=== PATIENT | female | born 1985 | race Caucasian/White ===

== ENCOUNTER 2019-09-09 22:17 | Emergency (ER) | payer OTHER ==
[~2019-09-09] VITALS: Ht 172.7 cm; Wt 63.5 kg
[2019-09-09 23:09] LABS: BASOPHILS % (AUTO) 0.1 % (0.0-2.0); HEMATOCRIT 45.9 % (31.2-41.9); HEMOGLOBIN 15.1 g/dL (10.9-14.3); LYMPHOCYTES # (AUTO) 0.5 K/uL (20.0-40.0); LYMPHOCYTES % (AUTO) 4.4 % (20.5-51.5); MEAN CORPUSCULAR HEMOGLOBIN 29.9 uug (24.7-32.8); MEAN CORPUSCULAR HGB CONC 33 g/dL (32.3-35.6); MEAN CORPUSCULAR VOLUME 90.9 fL (75.5-95.3); MONOCYTES # (AUTO) 0.3 K/uL (2.0-10.0); MONOCYTES % (AUTO) 2.6 % (0.0-11.0); NEUTROPHILS # (AUTO) 11.1 K/uL (1.8-8.9); NEUTROPHILS % (AUTO) 92.9 % (38.5-71.5); PLATELET COUNT (AUTO) 154 K/uL (179-408); RED BLOOD CELL COUNT(AUTO) 5.05 MIL/uL (3.63-4.92)
[2019-09-09] MEDS ORDERED: IV NS 1000 ML 1,000 ML IV ONE (23:15)
[2019-09-09] MEDS ORDERED: MORPHINE SULFATE 4 MG/1 ML DISP.SYRIN IM ONE (23:15)
[2019-09-09] MEDS ORDERED: MORPHINE SULFATE 2 MG/1 ML DISP.SYRIN IV ONE (23:15)
[2019-09-09 23:23] LABS: BILIRUBIN,DIRECT 0.3 mg/dL (0.0-0.2); BILIRUBIN,TOTAL 0.9 mg/dL (0.2-1.0); TOTAL PROTEIN, SERUM 7.7 g/dL (6.4-8.2)
[2019-09-09] MEDS ORDERED: HYDROMORPHONE 1 MG/1 ML DISP.SYRIN ONE (23:37)
[2019-09-09] MEDS ORDERED: HYDROMORPHONE 1 MG/1 ML DISP.SYRIN IV ONE (23:45)
[2019-09-10 00:33] LABS: *BILIRUBIN,URIN NEGATIVE (NEGATIVE); *CLARITY,URINE CLOUDY (CLEAR); *COLOR,URINE YELLOW (YELLOW); *KETONES,URINE TRACE (NEGATIVE); LEUKOCYTE ESTERASE ,URINE NEGATIVE (NEGATIVE); NITRITE, URINE POSITIVE (NEGATIVE); PH,URINE 6.5 (5.0-8.0); UGLUCOSE NEGATIVE (NEGATIVE)
[2019-09-10 00:38] LABS: *BLOOD, URINE TRACE (NEGATIVE)
[2019-09-10 00:41] LABS: *URINE HCG, QUAL NEGATIVE (NEGATIVE)
[2019-09-10 00:44] LABS: BACTERIA,URINE MANY /HPF (NONE SEEN)
[2019-09-10 00:45] LABS: MUCUS,URINE FEW /LPF (0-FEW); SQUAMOUS EPITHELIAL CELL,UR FEW /HPF (NONE SEEN)
--- NOTE | 2019-09-10 01:11 | NUR ---
O2SAT DROPPING TO 90-91% PT STATES: "HELP I AM HAVING TROUBLE BREATHING" STARTED ON SUPPLEMENTAL O2 VIA NC AT 2LPM PT O2SAT AT 94-95%
--- NOTE | 2019-09-10 01:11 | NUR ---
PT BACK FR CT VIA [facility] BY KERRI VOSS
--- NOTE | 2019-09-10 02:15 | NUR ---
[facility] called, call for bed done pt to admit tele dx pneumonia under barbi cisse
[2019-09-10] MEDS ORDERED: ACETAMINOPHEN 650 MG/20.3 ML LIQUID UDC PO ONE (02:30)
[2019-09-10] MEDS ORDERED: OSELTAMIVIR PHOSPHATE 75 MG CAPSULE PO ONE (02:30)
[2019-09-10] MEDS ORDERED: IV NS 1000 ML 1,000 ML IV ONE (02:30)
[2019-09-10] MEDS ORDERED: VANCOMYCIN 1G/D5W 200 ML PIGGYBACK IV ONE (02:30)
[2019-09-10] MEDS ORDERED: levoFLOXacin 750 MG/D5W 150 ML PIGGYBACK IV ONE (02:30)
[2019-09-10] MEDS ORDERED: levoFLOXacin 750MG/D5W 150 ML IV ONE (02:41)
[2019-09-10] MEDS ORDERED: OSELTAMIVIR PHOSPHATE 75 MG CAPSULE ONE (02:41)
[2019-09-10] MEDS ORDERED: ACETAMINOPHEN 650 MG/20.3 ML LIQUID UDC ONE (02:41)
[2019-09-10] MEDS ORDERED: VANCOMYCIN IV 200 ML ONE (02:42)
[2019-09-10] MEDS ORDERED: HYDROCODONE/APAP 5-325MG TABLET PO PRN (02:45)
[2019-09-10] MEDS ORDERED: ONDANSETRON 4 MG/2 ML VIAL IV PRN (02:45)
[2019-09-10] MEDS ORDERED: IV NS 1000 ML 1,000 ML IV PRN (02:45)
[2019-09-10] MEDS ORDERED: MAGNESIUM HYDROXIDE 30 ML LIQUID UDC PO PRN (02:45)
[2019-09-10] MEDS ORDERED: Z GUARD REMEDY PASTE 57 GM TUBE TOP PRN (02:45)
[2019-09-10] MEDS ORDERED: ACETAMINOPHEN 325 MG TABLET PO PRN (02:45)
--- NOTE | 2019-09-10 02:55 | NUR ---
Alessandro CROSS CALLED BACK pt to admit tele RM [phone] dx pneumonia
--- NOTE | 2019-09-10 03:03 | NUR ---
CALLED FOR REPORT CATRACHITA ARDON WILL CALL BACK ONCE ROOM AVAILABLE
--- NOTE | 2019-09-10 03:06 | NUR ---
BELONGINGS LIST SIGNED AND ACCOUNTED FOR
--- NOTE | 2019-09-10 03:17 | NUR ---
HAND OFF AND SBAR GIVEN TO CATRACHITA ARDON PT AT SUPPLEMENTAL O2 VIA NC AT 2LPM PT W/ RUNNING ABX PER IV TO L ANDREAS G20 WILL TRANSPORT VIA [facility]
--- NOTE | 2019-09-10 03:30 | NUR ---
TRANSPORTED VIA [facility] BY JULES ARDON
--- NOTE | 2019-09-10 03:50 | NUR ---
admitted this 34 y.o. female via gurney, accompanied by er nurse,with complaints of lower back pain,alert and awake but appears short of breath, oxygen via nasal cannula on at 2l/min. kept dry and clean, iv siteon left ac parent and intactg 20, vanco infusing well at desired rate.admission care rendered, assisted to br, voided freely well, on tele sinus tach 108, refused to have personal belongings inventoried. [facility] notified of pt's admission, orders put in.
--- NOTE | 2019-09-10 04:30 | NUR ---
PT BECAME VERY ANXIOUS, JUMPED OUT OF BED AND LOCKED SELF IN BR, AFTER 10 MIN. 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 APPROPRIATE NURSING PERSONNEL AND SECURITY WERE MADE AWARE OF ABOVE. PT INSISTED TO KEEP IT BUT SHE WONT USE IT OR SHE WOULD JUST TAKE IT WITH HER AND LEAVE THE HOSPITAL BEC EVENTS ADMINISTRATIVE ASSISTANT MIGHT ARREST HER. ACTIVE LISTENING PROVIDED AND INSTRUCTED HER THAT WE ARE TRYING TO HELP HER WITH HER MEDICAL CONDITION AND SHE NEEDS TO ADHERE TO HOSP . POLICY. THEN SHE AGRED TO STAY AND MD WILL BE NOTIFIED REGARDING HER NEEDS.AT THIS TIME SHE IS IN APPARENTLY FAIR CONDITION.
--- NOTE | 2019-09-10 05:25 | NUR ---
PT FOUND RUNNING AWAY FROM THE UNIT , SHE PULLED OUT HER IV LINE AND AND ELOPED, WONT EVEN LISTEN TO ANYBODY, TOOK ALL HER BELONGINGS AND LEFT . JEAN PIERRE CROSS NOTIFIED OF ABOVE .
[2019-09-10] MEDS ORDERED: OSELTAMIVIR PHOSPHATE 75 MG CAPSULE PO SCH (09:00)
[2019-09-10] MEDS ORDERED: levoFLOXacin 750MG/D5W 750 MG in PREMIXED 1 EACH IV SCH (21:00)
== END 2019-09-10 05:25 | disposition left against medical advice (07) ==
LOC: ER 22:17 → UNDOADMIN 09-10 03:05 → TELE3 09-10 03:05 → ER 09-10 05:25 → UNDODISIN 09-10 05:25
DX: J18.8 Other pneumonia, unspecified organism (principal); R10.9 Unspecified abdominal pain; F17.200 Nicotine dependence, unspecified, uncomplicated; Z88.0 Allergy status to penicillin
CPT/HCPCS: 36415; 74176; 80048; 80076; 81000; 81001; 83605; 83690; 84703; 85025; 87040; 87086; 87400; 96374; 96375; 99284; J1170; J1956; J2270; J3370; A4663; G0378; J7030